=== PATIENT | male | born 1945 | race Caucasian/White ===

== ENCOUNTER 2019-04-26 13:54 | Outpatient (CLI) | payer MEDICARE, SELFPAY ==
[2019-04-27 11:01] LABS: Anion Gap 14.7 (5-19); Blood Urea Nitrogen 11 mg/dL (8-23); Carbon Dioxide 28 mmol/L (22-29); Chloride 94 mmol/L (98-107); Glucose 114 mg/dL (65-115); Osmolality Calculated 271 mOsm/kg (285-295); Potassium 4.7 mmol/L (3.5-5.1); Sodium 132 mmol/L (136-145)
[2019-04-29 08:52] LABS: Chol HDL Ratio 1.79 mg/dL (1.0-5.00); Cholesterol 200 mg/dL (0-200); HDL Cholesterol 112 mg/dL (60-100); LDL Cholesterol Calculated 81 mg/dL (50-129); LDL HDL Ratio 0.72 RATIO (0.00-3.22); Triglycerides 36 mg/dL (0-150)
== END 2019-04-26 13:55 | disposition home or self-care (01) ==
LOC: LAB 14:02
PROVIDERS: Family Provider Family Medicine; PCP Family Medicine; Visit Provider Counselor Professional
DX: E78.5 Hyperlipidemia, unspecified (principal); I25.10 Atherosclerotic heart disease of native coronary artery without angina pectoris; I25.84 Coronary atherosclerosis due to calcified coronary lesion; I10 Essential (primary) hypertension
CPT/HCPCS: 36415; 80048; 80061

== ENCOUNTER → 2019-12-24 10:41 | Outpatient (BNVA) | payer MEDICARE, SELFPAY | PROVIDERS: Family Provider Family Medicine; PCP Family Medicine; Visit Provider Family Medicine | DX: Z71.84 Encounter for health counseling related to travel (principal); F51.01 Primary insomnia; D70.8 Other neutropenia; Z00.00 Encounter for general adult medical examination without abnormal findings | CPT/HCPCS: 85025; 87635 ==

== ENCOUNTER → 2020-07-09 08:07 | Outpatient (BNVA) | payer MEDICARE, SELFPAY | PROVIDERS: Family Provider Family Medicine; PCP Family Medicine; Visit Provider Family Medicine Adult Medicine | DX: R30.0 Dysuria (principal); N39.0 Urinary tract infection, site not specified; R52 Pain, unspecified; I10 Essential (primary) hypertension | CPT/HCPCS: 81003; 87086 ==

== ENCOUNTER → 2020-08-10 10:52 | Outpatient (BNVA) | payer MEDICARE, SELFPAY | PROVIDERS: Family Provider Family Medicine; PCP Family Medicine; Visit Provider Registered Nurse Neonatal Intensive Care | DX: N39.0 Urinary tract infection, site not specified (principal) | CPT/HCPCS: 81000; 87077; 87086; 87184 ==

== ENCOUNTER → 2020-08-18 12:02 | Outpatient (BNVA) | payer MEDICARE, SELFPAY | PROVIDERS: Family Provider Family Medicine; PCP Family Medicine; Visit Provider Family Medicine | DX: N39.0 Urinary tract infection, site not specified (principal); R31.9 Hematuria, unspecified; N41.0 Acute prostatitis; N52.9 Male erectile dysfunction, unspecified; N40.0 Benign prostatic hyperplasia without lower urinary tract symptoms | CPT/HCPCS: 81000 ==

== ENCOUNTER → 2020-08-27 08:55 | Outpatient (BNVA) | payer MEDICARE, SELFPAY | PROVIDERS: Family Provider Family Medicine; PCP Family Medicine; Referring Provider Family Medicine Adult Medicine; Visit Provider Urology | DX: N39.0 Urinary tract infection, site not specified (principal); R31.9 Hematuria, unspecified; N40.0 Benign prostatic hyperplasia without lower urinary tract symptoms; N13.8 Other obstructive and reflux uropathy; N40.1 Benign prostatic hyperplasia with lower urinary tract symptoms | CPT/HCPCS: 81003 ==

== ENCOUNTER → 2021-06-07 10:51 | Outpatient (BNVA) | payer MEDICARE, SELFPAY | PROVIDERS: Family Provider Family Medicine; PCP Family Medicine; Visit Provider Family Medicine | DX: I10 Essential (primary) hypertension (principal); D72.819 Decreased white blood cell count, unspecified; I48.91 Unspecified atrial fibrillation; E78.00 Pure hypercholesterolemia, unspecified; I48.0 Paroxysmal atrial fibrillation | CPT/HCPCS: 80053; 80061; 84439; 84443; 85025 ==

== ENCOUNTER 2021-12-31 09:00 | Outpatient (CLI) | payer MEDICARE, SELFPAY ==
[2021-12-31 09:51] LABS: Chol HDL Ratio 1.76 mg/dL (1.0-5.00); Cholesterol 176 mg/dL (0-200); HDL Cholesterol 100 mg/dL (60-100); LDL Cholesterol Calculated 69 mg/dL (50-129); LDL HDL Ratio 0.69 RATIO (0.00-3.22); Triglycerides 33 mg/dL (0-150)
== END 2021-12-31 09:01 | disposition home or self-care (01) ==
PROVIDERS: PCP Family Medicine; Visit Provider Counselor Professional
DX: E78.00 Pure hypercholesterolemia, unspecified (principal); I10 Essential (primary) hypertension
CPT/HCPCS: 80061

== ENCOUNTER 2022-07-12 16:07 | Emergency (ER) | payer MEDICARE, SELFPAY ==
[2022-07-12] VITALS (9 sets, daily range): BP systolic 112–120; BP diastolic 65–70; PULSE 53–58; RESP 16–21; TEMP 36.9; O2SAT 97–98; BMI 22.4
--- NOTE | 2022-07-12 16:44 | ECG_ITS ---
[facility] Test Date: 2022-07-12 Pat Name: Terry Zuluaga Department: Room: Gender: Male Warehouse Representative: : 1945 Requested By: Herman Pozo Order Number: [id number] Monique MD: Greg Arceo M.D. Measurements Intervals [place] Rate: 53 P: 30 W[place]: 208 QRS: -3 QRSD: 107 T: 156 QT: 404 QTc: 381 Interpretive Statements SINUS BRADYCARDIA POSSIBLE LEFT ATRIAL ENLARGEMENT [-0.1mV P-WAVE IN V1/V2] ST DEVIATION AND MODERATE T-WAVE ABNORMALITY, CONSIDER ANTEROLATERAL ISCHEMIA [-0.1+ mV T-WAVE IN V3-V6] No previous ECG available for comparison Electronically Signed On 07-13-2022 17:50:57 CDT by Greg Arceo M.D. [id number]
--- NOTE | 2022-07-12 18:10 | XRR_ITS ---
PROCEDURE INFORMATION: Exam: XR Chest Exam date and time: 07/12/2022 6:25 PM Age: 77 years old Clinical indication: Cough and fever; Prior surgery; Surgery date: 6+ months; Surgery type: Cabg; Additional info: Cough fever TECHNIQUE: Imaging protocol: Radiologic exam of the chest. Views: 1 view. COMPARISON: No relevant prior studies available. FINDINGS: Lungs: See Heart/Mediastinum finding. Pleural spaces: Bilateral apical pleural thickening. No pleural effusion. No pneumothorax. Heart/Mediastinum: Cardiac silhouette is moderately enlarged. Mediastinal contours are unremarkable. Calcified subcarinal lymph node. Vasculature: Stable vascular calcifications in the aorta. Bones/joints: Unremarkable for age. XR/XR chest 1V portable [id number] IMPRESSION: 1. No acute cardiopulmonary process. 2. Incidental/nonacute findings are listed in the report.
--- NOTE | 2022-07-12 18:33 | ED_ITS ---
HPI - General Adult General: Chief complaint: General Medical Stated complaint: abnormal EKG Time Seen by Provider: 07/12/22 18:09 History of Present Illness: 77-year-old male patient comes in today for concerns of night sweats and abnormal EKG. Patient was at urgent care and was referred to the ER due to abnormal EKG. Patient states that last week he had worked outside for several days and since then has had increased night sweats which he attributes to heat exhaustion. Patient reports this has been going on for 4 days. Patient denies any other signs or symptoms of illness or injury. Patient has a history of coronary artery disease with bypass. Patient denies any other medical problems. Associated symptoms: Deny chest pain, dyspnea, headache(s), nausea, rash or vomiting Review of Systems General: Reports: 10 or more systems reviewed and unremarkable except in HPI and below Const: Reports: night sweats Eyes: Denies: change in vision ENMT: Denies: throat pain Card: Denies: chest pain Resp: Denies: dyspnea GI: Denies: nausea, vomiting or diarrhea : Denies: difficulty urinating Musc: Denies: neck pain or back pain Skin/Breast: Denies: rash Neuro: Denies: headache(s) Psych: Denies: anxiety PFSH ED PFSH: Medical History ASHD (arteriosclerotic heart disease) Atrial fibrillation and flutter BPH w urinary obs/LUTS Erectile dysfunction GERD (gastroesophageal reflux disease) History of leukemia Hypercholesteremia Hypertension Leukopenia Primary insomnia Prostatitis Recurrent UTI UTI (urinary tract infection) Surgical History History of appendectomy History of coronary artery bypass graft x 3 History of eyelid surgery History of inguinal hernia repair Social History Smoking and tobacco status: former smoker Alcohol intake: never Substance/Drug Use: never Marital status: Single Current occupational status: retired Physical Exam Const: COMMON NORMALS: alert HENMT: COMMON NORMALS: normocephalic HEAD & SCALP: normocephalic Neck/C-Spine: COMMON NORMALS: full ROM Chest: COMMONS NORMALS: normal inspection of the chest Resp: COMMON NORMALS: normal respiratory effort and clear to auscultation bilaterally AUSCULTATION: clear to auscultation bilaterally Cardio: COMMON NORMALS: regular rate and regular rhythm RATE: regular rate RHYTHM: regular rhythm GI: COMMON NORMALS: Soft to palpation and non-tender PALPATION: Yes Soft to palpation : COMMON NORMALS: Yes no CVA tenderness BLADDER/KIDNEY EXAM: Yes no CVA tenderness Back/Pelvis: COMMON NORMALS: no CVA tenderness Extremity: COMMON NORMALS: no pedal edema Neuro: SENSORIUM/ORIENTATION: Yes alert Skin: COMMON NORMALS: turgor normal GENERAL SKIN EXAM: turgor normal Course Vital Signs: Vital signs: Vital Signs Temperature 98.4 F 07/12/22 17:13 Pulse Rate 53 L 07/12/22 19:35 Respiratory Rate 18 07/12/22 19:35 Blood Pressure 120/70 07/12/22 19:35 Pulse Oximetry 98 07/12/22 18:38 Oxygen Delivery Me thod Room Air 07/12/22 17:13 [facility] - General Adult Medical Decision Making 77-year-old male patient comes in today for complaints of night sweats and abnormal EKG. Patient was at urgent care and his EKG was abnormal and was recommended to come into the ER for further evaluation. Patient appears nontoxic. Lungs were clear to auscultation. No edema is noted in the extremities. No rash was noted. Vital signs were normal except for some mild bradycardia at 55. Differential diagnosis includes but not limited to pneumonia, UTI, coronary artery disease, dehydration. Patient sodium was 126. CRP was elevated at 54. Remainder of labs were unremarkable. Patient denied any shortness of breath or chest pain. With patient's night sweats and elevated CRP I was concerned for an infectious origin. I could not find any site of infection. Patient reported no tick bites. Liver enzymes were normal. I recommend recheck of blood markers in 1 week with primary care. Patient has chr onic hyponatremia but today's was a little bit lower at 126 I gave patient 500 mL of saline and recommended electrolyte solution especially when working in the yard. Patient reported understanding of care plan and need for follow-up or return to the ER for worsening symptoms. Lab Data 07/12/22 18:30 07/12/22 18:30 Radiology Impressions Chest X-Ray 07/12/22 18:10 IMPRESSION: 1. No acute cardiopulmonary process. 2. Incidental/nonacute findings are listed in the report. Laboratory Results WBC 4.3 10^3/uL (4.0-10.0) 07/12/22 18:30 RBC 4.05 10^6/uL (4.1-5.3) L 07/12/22 18:30 Hgb 12.2 g/dL (11.7-16.6) 07/12/22 18:30 Hct 35.2 % (42.0-52.0) L 07/12/22 18:30 MCV 86.9 fl (80-94) 07/12/22 18:30 MCH 30.1 pg (28.0-34.0) 07/12/22 18: MCHC 34.7 g/dL (30.0-36.0) 07/12/22 18:30 RDW 12.3 % (12.1-15.1) 07/12/22 18:30 Plt Count 236 10^3/cmm (130-400) 07/12/22 18:30 MPV 10.4 fL (7.4-10.4) 07/12/22 18:30 Neut % (Auto) 65.8 % 07/12/22 18:30 Lymph % (Auto) 15.7 % 07/12/22 18:30 Stokes % (Auto) 11.7 % 07/12/22 18:30 Eos % (Auto) 5.4 % 07/12/22 18:30 Baso % (Auto) 0.7 % 07/12/22 18:30 Neut # (Auto) 2.82 10^3/uL (1.8-7.7) 07/12/22 18:30 Lymph # (Auto) 0.7 10^3/uL (0.8-4.8) L 07/12/22 18:30 Stokes # (Auto) 0.5 10^3/uL (0.2-0.9) 07/12/22 18:30 Eos # (Auto) 0.2 10^3/uL (0.0-0.8) 07/12/22 18:30 Baso # (Auto) 0.0 10^3/uL (0.0-0.1) 07/12/22 18:30 Nucleated RBC % (auto) 0 % 07/12/22 18:30 Nucleated RBCs # 0.0 /100WBC 07/12/22 18:30 Sodium 126 mmol/L (136-145) L 07/12/22 18:30 Potassium 3.9 mmol/L (3.5-5.1) 07/12/22 18:30 Chloride 88 mmol/L (98-107) L 07/12/22 18:30 Carbon Dioxide 26 mmol/L (22-29) 07/12/22 18:30 Anion Gap 15.9 (5-19) 07/12/22 18:30 BUN 17 mg/dL (8-23) 07/12/22 18:30 Creatinine 0.8 mg/dL (0.7-1.2) 07/12/22 18:30 GFR Calculation Not Reportable 07/12/22 18: Glucose 107 mg/dL (65-115) 07/12/22 18:30 Calculated Osmolality 264 mOsm/kg (285-295) L 07/12/22 18:30 Lactic Acid 0.8 mmol/L (0.5-2.2) 07/12/22 18:30 Calcium 10.0 mg/dL (8.5-10.5) 07/12/22 18:30 Total Bilirubin 0.7 mg/dL (0.15-1.2) 07/12/22 18:30 AST 16 U/L (0-40) 07/12/22 18:30 ALT 19 U/L (0-41) 07/12/22 18:30 Alkaline Phosphatase 54 U/L (40-130) 07/12/22 18:30 Troponin T Baseline 12 ng/L (0-15) 07/12/22 18:30 C-Reactive Protein 54.0 mg/L (0.0-4.9) H 07/12/22 18:30 NT-Pro-B Natriuret Pep 257 pg/mL (0-450) 07/12/22 18:30 Total Protein 7.2 g/dL (6.6-8.7) 07/12/22 18:30 Albumin 4.0 g/dL (3.5-5.2) 07/12/22 18:30 Globulin 3.2 g/dL (1.3-4.6) 07/12/22 18: Lipase 54 U/L (13-60) 07/12/22 18:30 Urine Color Yellow (Yellow) 07/12/22 19:08 Urine Appearance Clear (CLEAR) 07/12/22 19:08 Urine pH 7 (5-7) 07/12/22 19:08 Ur Specific [place] 1.010 (1.005-1.030) 07/12/22 19:08 Urine Protein Neg (Negative) 07/12/22 19:08 Urine Glucose (UA) Norm (Normal) 07/12/22 19:08 Urine Ketones Negative (Negative) 07/12/22 19:08 Urine Blood 2+ (Negative) H 07/12/22 19:08 Urine Nitrate Negative (Negative) 07/12/22 19:08 Urine Bilirubin Neg (Negative) 07/12/22 19:08 Urine Urobilinogen Neg mg/dL (Negative) 07/12/22 19:08 Ur Leukocyte Esterase Negative (Negative) 07/12/22 19:08 Urine RBC 0-4 /hpf (0-2) H 07/12/22 19:08 Urine WBC None /hpf (0-5) 07/12/22 19:08 Ur Squamous Epith Cells None /hpf (0-5) 07/12/22 19:08 Amorphous Sediment 2+ /hpf 07/12/22 19:08 Urine Bacteria None /hpf (NONE) 07/12/22 19:08 EKG Data EKG 1: EKG interpretation date: 07/12/22 EKG interpretation time: 17:10 Interpretation: EKG shows a sinus bradycardia with a regular rate of 53 bpm. No prior exam was available for comparison. No ST elevation is noted no other ectopy is noted. Patient has some ST deviation with T wave abnormality. Computer generated interpretation: Chest X-Ray 07/12/22 18:10 IMPRESSION: 1. No acute cardiopulmonary process. 2. Incidental/nonacute findings are listed in the report. Discharge Plan Discharge Patient Disposition: Home Clinical Impression: Hyponatremia, CRP elevated CAD (coronary artery disease) Qualifiers: Coronary Disease-Associated Artery/Lesion type: bypass graft [place] vs. transp lanted heart: [place] heart Associated angina: without angina Qualified Code(s): I25.810 - Atherosclerosis of coronary artery bypass graft(s) without angina pectoris Condition: Stable Prescriptions: No Action lisinopril-hydrochlorothiazide 10-12.5 mg tablet 1 tab PO DAILY atorvastatin 40 mg tablet 40 mg PO DAILY carvedilol 6.25 mg tablet 6.25 mg PO BID Rx Instructions: must administer with a meal/food sildenafil [Viagra] 50 mg tablet 50 mg PO DAILY PRN (Reason: sexual activity) Qty: 20 1RF Rx Instructions: administer 30 minutes to 4 hours before activity diclofenac sodium 75 mg tablet,delayed release (DR/EC) 75 mg PO BID PRN (Reason: pain) Qty: 14 0RF tamsulosin 0.4 mg capsule See Rx Instructions .ROUTE .COMPLEX Qty: 180 3RF Dose Instruction: TAKE 2 CAPSULES BY MOUTH EVERY DAY Rx Instructions: TAKE 2 CAPSULES BY MOUTH EVERY DAY alprazolam [Xanax] 1 mg tablet 1 mg PO BID PRN (Reason: sleep) Qty: 45 4RF Discharge Orders: Discharge ED (Routine); Ordered 07/12/22 Ordered By: Isreal Miller Referrals: Eva Nuñez MD [Primary Care Provider] - Discharge Diet: Usual diet Discharge Activity: Increase activity as tolerated Patient Instructions: Heat Exhaustion (ED) Activity Restrictions/Additional Instructions: Home and rest. Drink plenty of fluids. Make sure to replace electrolytes when outside and sweating. Follow-up with primary care in 1 week for recheck on labs. Return to ED for new concerns such as increased shortness of breath, severe chest pain, fever greater than 100.4, or new concerns. Coding Level of Care Code ED Leather Cutter for Lavonne Enrique
[2022-07-12 19:15] LABS: Basophils % 0.7 %; Eosinophils # 0.2 10^3/uL (0.0-0.8); Eosinophils % 5.4 %; Hematocrit 35.2 % (42.0-52.0); Hemoglobin 12.2 g/dL (11.7-16.6); Lymphocytes # 0.7 10^3/uL (0.8-4.8); Lymphocytes % 15.7 %; Mean Corpuscular HGB Conc 34.7 g/dL (30.0-36.0); Mean Corpuscular Hemoglobin 30.1 pg (28.0-34.0); Mean Corpuscular Volume 86.9 fl (80-94); Mean Platelet Volume 10.4 fL (7.4-10.4); Monocytes # 0.5 10^3/uL (0.2-0.9); Monocytes % 11.7 %; Neutrophils # 2.82 10^3/uL (1.8-7.7); Neutrophils % 65.8 %; Nucleated Red Blood Cells % 0 %; Platelet Count 236 10^3/cmm (130-400); Red Blood Count 4.05 10^6/uL (4.1-5.3); Red Cell Distribution Width 12.3 % (12.1-15.1); White Blood Count 4.3 10^3/uL (4.0-10.0)
[2022-07-12 19:37] LABS: Troponin(5th) Baseline 12 ng/L (0-15)
[2022-07-12 19:44] LABS: Add Urine Microscopic? YES; Bilirubin Urine Neg (Negative); Blood Urine 2+ (Negative); Glucose Urine UA Norm (Normal); Ketones Urine Negative (Negative); Leukocyte Esterase Urine Negative (Negative); Nitrate Urine Negative (Negative); Protein Urine Neg (Negative); Urine Appearance Clear (CLEAR); Urine Color Yellow (Yellow); Urobilinogen Urine Neg (Negative); pH Urine 7 (5-7)
[2022-07-12 19:44] LABS: Alanine Aminotransferase 19 U/L (0-41); Alkaline Phosphatase 54 U/L (40-130); Anion Gap 15.9 (5-19); Aspartate Amino Transferase 16 U/L (0-40); Blood Urea Nitrogen 17 mg/dL (8-23); Carbon Dioxide 26 mmol/L (22-29); Chloride 88 mmol/L (98-107); Globulin 3.2 g/dL (1.3-4.6); Glucose 107 mg/dL (65-115); Lipase 54 U/L (13-60); NT Pro B Type Natriuretic Pept 257 pg/mL (0-450); Osmolality Calculated 264 mOsm/kg (285-295); Potassium 3.9 mmol/L (3.5-5.1); Sodium 126 mmol/L (136-145); Total Bilirubin 0.7 mg/dL (0.15-1.2); Total Protein 7.2 g/dL (6.6-8.7)
[2022-07-12 19:45] LABS: Lactic Sepsis W/Reflex 0.8 mmol/L (0.5-2.2)
[2022-07-12 19:54] LABS: Add Urine Culture? No; Amorphous Sediment Urine 2+ /hpf; RBC Urine 0-4 /hpf (0-2)
[2022-07-12 20:46] LABS: Creatine Phosphokinase 69 U/L (39-308)
== END 2022-07-12 20:46 | disposition home or self-care (01) ==
PROVIDERS: Emergency Provider Nurse Practitioner Family; PCP Family Medicine
DX: I25.810 Atherosclerosis of coronary artery bypass graft(s) without angina pectoris (principal); E87.1 Hypo-osmolality and hyponatremia; R79.82 Elevated C-reactive protein (CRP); I10 Essential (primary) hypertension; Z87.891 Personal history of nicotine dependence
CPT/HCPCS: 36415; 71045; 80053; 81001; 82550; 83605; 83690; 83880; 84484; 85025; 86140; 93005; 99285

== ENCOUNTER 2023-02-28 11:52 | Outpatient (CLI) | payer MEDICARE, SELFPAY ==
[2023-02-28 13:11] LABS: Anion Gap 14.1 (5-19); Blood Urea Nitrogen 18 mg/dL (8-23); Calcium 10.4 mg/dL (8.5-10.5); Carbon Dioxide 26 mmol/L (22-29); Chloride 93 mmol/L (98-107); Chol HDL Ratio 1.83 mg/dL (1.0-5.00); Cholesterol 154 mg/dL (0-200); Glucose 116 mg/dL (65-115); HDL Cholesterol 84 mg/dL (60-100); LDL Cholesterol Calculated 61 mg/dL (50-129); LDL HDL Ratio 0.73 RATIO (0.00-3.22); Osmolality Calculated 269 mOsm/kg (285-295); Potassium 5.1 mmol/L (3.5-5.1); Sodium 128 mmol/L (136-145); Triglycerides 45 mg/dL (0-150)
== END 2023-02-28 11:53 | disposition home or self-care (01) ==
LOC: LAB 11:53
PROVIDERS: PCP Family Medicine; Visit Provider Counselor Professional
DX: Z01.89 Encounter for other specified special examinations (principal)
CPT/HCPCS: 80048; 80061

== ENCOUNTER 2023-11-01 18:18 | Emergency (ER) | payer MEDICARE, SELFPAY ==
[2023-11-01 18:34] VITALS: BP 156/76; PULSE 65; RESP 15; TEMP 36.6; O2SAT 96; BMI 22.4
--- NOTE | 2023-11-01 20:15 | ED_ITS ---
HPI - Skin/Abscess/Foreign Bdy General: Chief complaint: Skin/Abscess/Foreign Body Stated complaint: yellow jacket attack Time Seen by Provider: 11/01/23 19:59 Source: patient Mode of arrival: ambulatory Limitations: no limitations History of Present Illness: 78-year-old male states roughly 2 hours ago he was using loppers to chop down a small tree and had a wasp nest he was over and was stung multiple times by yellow jackets. He was stung mainly on the left arm states he has pain at the sites and some slight swelling and had some nausea he denies any shortness of breath denies any throat swelling denies any rash besides the localized stings Associated symptoms: Reports nausea; Deny chills, fever(s) or vomiting Related Data Home Medications Medication Instructions Recorded Confirmed atorvastatin 40 mg tablet 40 mg PO DAILY 12/24/19 09/07/23 carvedilol 6.25 mg tablet 6.25 mg PO BID 12/24/19 09/07/23 lisinopril 10 1 tab PO DAILY 12/24/19 09/07/23 mg-hydrochlorothiazide 12.5 mg tablet Previous Rx's Medication Instructions Recorded sildenafil 50 mg tablet See Rx Instructions .Route 09/05/22 .COMPLEX #20 tabs tamsulosin 0.4 mg capsule See Rx Instructions .Route 02/28/23 .COMPLEX #180 caps mupirocin 2 % topical ointment 1 applic topical TID #15 grams 06/28/23 diclofenac sodium 75 mg 75 mg PO BID PRN pain #60 tabs 07/17/23 tablet,delayed release alprazolam 1 mg tablet (Xanax) 1 mg PO BID PRN sleep #45 tabs 08/09/23 ondansetron 4 mg disintegrating 4 mg PO Q6H PRN nausea and 11/01/23 tablet vomiting #14 tabs Allergies Allergy/AdvReac Type Severity Reaction Status Date / Time morphine Allergy ADR-Gastrointestinal Verified 11/01/23 18:40 Upset Review of Systems Const: Denies: fever(s), chills, body aches or change in appetite ENMT: Denies: throat pain or dental pain Card: Denies: chest pain Resp: Denies: dyspnea GI: Reports: nausea; Denies: abdominal pain, vomiting or diarrhea Musc: Reports: extremity pain; Denies: neck pain or back pain Skin/Breast: Denies: rash Neuro: Denies: headache(s) PFSH ED PFSH: Medical History 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 Atrial fibrillation and flutter Erectile dysfunction Hypercholesteremia BPH w urinary obs/LUTS Recurrent UTI Prostatitis UTI (urinary tract infection) Hypertension History of leukemia GERD (gastroesophageal reflux disease) ASHD (arteriosclerotic heart disease) Leukopenia Primary insomnia Surgical History History of eyelid surgery History of coronary artery bypass graft x 3 History of inguinal hernia repair History of appendectomy Social History Smoking and tobacco/nicotine status: never used tobacco/nicotine Alcohol intake: never Substance/Drug Use: never Marital status: Single Current occupational status: retired Physical Exam Const: COMMON NORMALS: no acute distress, patient oriented x3 and healthy appearing HENMT: COMMON NORMALS: normocephalic and atraumatic HEAD & SCALP: normocephalic and atraumatic OTHER: no throat swelling Neck/C-Spine: COMMON NORMALS: full ROM and supple Chest: COMMONS NORMALS: normal inspection of the chest Resp: COMMON NORMALS: normal respiratory effort and clear to auscultation bilaterally EFFORT & INSPECTION: Yes able to speak in complete sentences AUSCULTATION: clear to auscultation bilaterally Cardio: COMMON NORMALS: regular rate, regular rhythm and No murmurs present (Cardio) RATE: regular rate RHYTHM: regular rhythm Extremity: NARRATIVE EXTREMITY EXAM: Multiple wall stains to left arm noted Neuro: COMMON NORMALS: patient oriented x3, moves all extremities and no focal motor deficits Psych: COMMON NORMALS: mental status grossly normal, Normal thought process present and cooperative THOUGHT PROCESS: Normal thought process present Skin: COMMON NORMALS: no rashes or lesions noted and no wounds GENERAL SKIN EXAM: no rashes or lesions noted Course Vital Signs: Vital signs: Vital Signs Temperature 97.8 F 11/01/23 18:34 Pulse Rate 67 11/01/23 20:16 Respiratory Rate 14 11/01/23 20:16 Blood Pressure 167/74 11/01/23 20:16 Pulse Oximetry 97 11/01/23 20:16 Oxygen Delivery Me thod Room Air 11/01/23 18:34 MDM - Skin/Abscess/Foreign Bdy Medicial Decision Making Patient presents for his stating he is well-appearing here no signs anaphylaxis he stable for discharge follow-up with PCP return if worsening. Medical Records I reviewed the patient's medical records. No radiology studies performed this visit Discharge Plan Discharge Patient Disposition: Home Clinical Impression: Wasp sting Condition: Stable Prescriptions: New ondansetron 4 mg tablet,disintegrating 4 mg PO Q6H PRN (Reason: nausea and vomiting) Qty: 14 0RF No Action lisinopril-hydrochlorothiazide 10-12.5 mg tablet 1 tab PO DAILY atorvastatin 40 mg tablet 40 mg PO DAILY carvedilol 6.25 mg tablet 6.25 mg PO BID Rx Instructions: must administer with a meal/food mupirocin 2 % ointment 1 applic topical TID Qty: 15 0RF sildenafil 50 mg tablet See Rx Instructions .ROUTE .COMPLEX Qty: 20 1RF Dose Instruction: TAKE 1 TABLET BY MOUTH 30 minutes TO FOUR hours before sexual activity NEEDED Rx Instructions: TAKE 1 TABLET BY MOUTH 30 minutes TO FOUR hours before sexual activity NEEDED tamsulosin 0.4 mg capsule See Rx Instructions .ROUTE .COMPLEX Qty: 180 3RF Dose Instruction: TAKE 2 CAPSULES BY MOUTH EVERY DAY Rx Instructions: TAKE 2 CAPSULES BY MOUTH EVERY DAY diclofenac sodium 75 mg tablet,delayed release (DR/EC) 75 mg PO BID PRN (Reason: pain) Qty: 60 2RF alprazolam [Xanax] 1 mg tablet 1 mg PO BID PRN (Reason: sleep) Qty: 45 4RF Discharge Orders: Discharge ED (Routine); Ordered 11/01/23 Ordered By: Dov Chaudhary Referrals: Eva Nuñez MD [Primary Care Provider] - 1-3 days Discharge Diet: Advance as tolerated Discharge Activity: Resume usual activity Patient Instructions: Insect Bite or Sting (ED) Coding Level of Care Code ED Medical Bill Processor for Lavonne Enrique
[2023-11-01 20:16] VITALS: BP 167/74; PULSE 67; RESP 14; O2SAT 97
[2023-11-01] MEDS: diphenhydrAMINE 50 mg Capsule PO (20:25)
[2023-11-01] MEDS: ondansetron 4 MG Tablet PO (20:25)
[2023-11-01] MEDS: HYDROcodone-acetaminophen 5-325 mg Tablet 1 TAB PO (20:25)
[2023-11-01 20:31] VITALS: BP 167/74; PULSE 63; RESP 14; O2SAT 98
== END 2023-11-01 20:31 | disposition home or self-care (01) ==
PROVIDERS: Emergency Provider Emergency Medicine; PCP Family Medicine
DX: T63.461A Toxic effect of venom of wasps, accidental (unintentional), initial encounter (principal); I10 Essential (primary) hypertension; Z85.6 Personal history of leukemia; Z95.1 Presence of aortocoronary bypass graft
CPT/HCPCS: 99283; Q0162; Q0163

== ENCOUNTER → 2023-12-13 08:00 | Outpatient (BNVA) | payer MEDICARE, SELFPAY | PROVIDERS: PCP Family Medicine; Referring Provider Family Medicine; Visit Provider Surgery | DX: K40.90 Unilateral inguinal hernia, without obstruction or gangrene, not specified as recurrent (principal) | CPT/HCPCS: 99204 ==

== ENCOUNTER → 2023-12-25 05:46 | Day surgery (SDC) | payer MEDICARE, SELFPAY ==
--- NOTE | 2023-12-25 05:45 | P.HPUD_ITS ---
Surgery/Procedure H&P Update DATE OF PROCEDURE: December 25, 2023 DATE H&P PERFORMED: 12/13/23 H&P UPDATE INFORMATION: I have reviewed H&P completed within last 30 days, I have examined patient prior to procedure, No changes to prior documentation and H&P is in [facility] EMR on date indicated PLANNED PROCEDURE: Operation Date: 12/25/23 07:00 Proposed Procedures p Open Inguinal Hernia Repair w/ Mesh [id number], K40.90(Right) - Terry Rodriguez MD
--- NOTE | 2023-12-25 06:03 | P.ANESASSM_ITS ---
Pre-Anesthetic Assessment Height/Weight: Height 6 ft 2 in Preop Diagnosis: Hernia Operation Date: 12/25/23 07:00 Proposed Procedures p Open Inguinal Hernia Repair w/ Mesh [id number], K40.90(Right) - Terry Rodriguez MD Was Beta Robert taken within 24 hours: N/A Was Clonidine taken within 24 hours: N/A Social No alcohol and No tobacco Quit smoking in 2009 Exam alert, oriented x 3, clear to auscultation bilaterally and regular rate & rhythm Airway Submandibular: within normal limits Cervical ROM: within normal limits Mallampati: Class III Dentition: full and other (Mostly all implants, nothing comes out. Denies any loose teeth) Anesthetic Plan ASA status: 3 Anesthesia: General Other: No prior issues with anesthesia NPO since yesterday evening History of hypertension on lisinopril?HCTZ, carvedilol. History of atrial flutter, ablation 2 years ago. Will obtain EKG BMP pending Patient remains active, METs greater than 4 Plan for GETA Medications/Allergies Home Medications Medication Instructions Recorded Confirmed Last Taken Type atorvastatin 40 mg tablet 40 mg PO DAILY 12/24/19 12/21/23 12/20/23 21:00 History carvedilol 6.25 mg tablet 6.25 mg PO BID 12/24/19 12/21/23 12/20/23 21:00 History lisinopril 10 1 tab PO DAILY 12/24/19 12/21/23 12/21/23 History mg-hydrochlorothiazide 12.5 mg tablet mupirocin 2 % topical ointment 1 applic topical TID #15 grams 06/28/23 12/21/23 Unknown Rx diclofenac sodium 75 mg 75 mg PO BID PRN pain #60 tabs 07/17/23 12/21/23 Unknown Rx tablet,delayed release alprazolam 1 mg tablet (Xanax) 1 mg PO BID PRN sleep #45 tabs 08/09/23 12/21/23 12/20/23 21:00 Rx sildenafil 50 mg tablet (Viagra) See Rx Instructions .Route .COMPLEX 12/21/23 12/21/23 Unknown History tamsulosin 0.4 mg capsule (Flomax) 0.8 mg PO DAILY 12/21/23 12/21/23 History Allergies Allergy/AdvReac Type Severity Reaction Status Date / Time morphine Allergy ADR-Gastrointestinal Verified 12/21/23 11:53 Upset [facility] Anesthesia Medical History 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 Atrial fibrillation and flutter Erectile dysfunction Hypercholesteremia BPH w urinary obs/LUTS Recurrent UTI Prostatitis UTI (urinary tract infection) Hypertension History of leukemia GERD (gastroesophageal reflux disease) ASHD (arteriosclerotic heart disease) Leukopenia Primary insomnia Surgical History (Updated 12/13/23 @ 08:25 by Terry Rodriguez MD) History of coronary artery bypass graft x 3 History of inguinal hernia repair History of appendectomy Social History (Updated 12/13/23 @ 08:18 by LEON Bowen) Smoking and tobacco/nicotine status: former use of tobacco/nicotine Alcohol intake: current Alcohol intake frequency: holidays/special occasions only Substance/Drug Use: never Marital status: Single Current occupational status: retired Data Anesthesia 12/25/23 06:15 Cardiac Studies: 2 No Data to Display
[2023-12-25 06:11] VITALS: BP 119/77; PULSE 54; RESP 18; TEMP 36.4; O2SAT 98
[2023-12-25 06:14] VITALS: BMI 21.7
[2023-12-25] MEDS: sodium chloride 0.9% 1,000 ML 30 ML IV (06:28)
--- NOTE | 2023-12-25 06:45 | ECG_ITS ---
[facility]: [facility]23[facility]25 Pat Name: Terry Zuluaga Department: Room: Gender: Male Emergency Room Clerk: : 1945 Requested By: Esmer Mendez Order Number: [id number] Monique MD: Lulu Ovalle M.D. Measurements Intervals [place] Rate: 51 P: 40 [place]: 255 QRS: 50 QRSD: 118 T: 101 QT: 409 QTc: 377 Interpretive Statements SINUS BRADYCARDIA WITH FIRST DEGREE AV BLOCK MODERATE INTRAVENTRICULAR CONDUCTION DELAY [110+ ms QRS DURATION] MODERATE T-WAVE ABNORMALITY, CONSIDER ANTERIOR ISCHEMIA [-0.1+ mV T-WAVE IN V3/V4] Compared to ECG 07/12/2022 16:44:47 First degree AV block now present Intraventricular conduction delay now present T-wave abnormality still present Possible ischemia still present Electronically Signed On 12-26-2023 00:51:30 CDT by Lulu Ovalle M.D. [id number]
[2023-12-25 06:55] LABS: Blood Urea Nitrogen 11 mg/dL (8-23); Calcium 9.4 mg/dL (8.5-10.5); Carbon Dioxide 24 mmol/L (22-29); Chloride 91 mmol/L (98-107); Creatinine Clr Calc Pharmacy 87.4812; Glucose 107 mg/dL (65-115); Osmolality Calculated 256 mOsm/kg (285-295); Sodium 123 mmol/L (136-145)
[2023-12-25 06:57] LABS: Anion Gap 12.6 (5-19); Potassium 4.6 mmol/L (3.5-5.1)
--- NOTE | 2023-12-25 07:12 | PC.NURSE ---
Procedured cancelled per anesthesia due to low sodium level of 123
== END ==
PROVIDERS: Anesthesiology; PCP Family Medicine; Visit Provider Surgery
DX: K40.90 Unilateral inguinal hernia, without obstruction or gangrene, not specified as recurrent (principal); Z53.8 Procedure and treatment not carried out for other reasons
CPT/HCPCS: 36415; 80048; 93005; J2704; J3010; J7030

== ENCOUNTER → 2024-01-04 14:41 | Outpatient (BNVA) | payer MEDICARE, SELFPAY | PROVIDERS: PCP Family Medicine; Visit Provider Family Medicine | DX: K40.90 Unilateral inguinal hernia, without obstruction or gangrene, not specified as recurrent (principal) | CPT/HCPCS: 80048 ==

== ENCOUNTER 2024-01-22 08:11 | Day surgery (SDC) | payer MEDICARE, SELFPAY ==
[2024-01-22] VITALS (12 sets, daily range): BP systolic 129–165; BP diastolic 63–83; PULSE 50–62; RESP 15–20; TEMP 36.4–36.7; O2SAT 98–100; BMI 21.7
--- NOTE | 2024-01-22 08:29 | W.PM.OPSFHP ---
Same Day Surgery H&P Indication for Procedure/HPI DATE OF PROCEDURE: January 22, 2024 CHIEF COMPLAINT/INDICATIONFOR SURGICAL PROCEDURE: Right inguinal hernia PREOP DIAGNOSIS: right inguinal hernia PLANNED PROCEDURE: Operation Date: 01/22/24 11:55 Proposed Procedures p Open Inguinal Hernia Repair w/ Mesh(Right) - Terry Rodriguez MD Medications/Allergies* Home Medications Medication Instructions Recorded Confirmed Type atorvastatin 40 mg tablet 40 mg PO DAILY 12/24/19 01/08/24 History carvedilol 6.25 mg tablet 6.25 mg PO BID 12/24/19 01/08/24 History sildenafil 50 mg tablet (Viagra) See Rx Instructions .Route .COMPLEX 12/21/23 01/08/24 History tamsulosin 0.4 mg capsule (Flomax) 0.8 mg PO DAILY 12/21/23 01/08/24 History Allergies/Adverse Reactions Allergy/AdvReac Type Severity Reaction Status Date / Time morphine Allergy ADR-Gastrointestinal Verified 01/08/24 09:36 Upset Pertinent History/Comorbid Conditions* Medical History (Updated 11/27/23 @ 16:17 by Eva Nuñez MD) 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 Atrial fibrillation and flutter Erectile dysfunction Hypercholesteremia BPH w urinary obs/LUTS Recurrent UTI Prostatitis UTI (urinary tract infection) Hypertension History of leukemia GERD (gastroesophageal reflux disease) ASHD (arteriosclerotic heart disease) Leukopenia Primary insomnia Surgical History (Updated 12/13/23 @ 08:25 by Terry Rodriguez MD) History of coronary artery bypass graft x 3 History of inguinal hernia repair History of appendectomy Social History Smoking and tobacco/nicotine status: never used tobacco/nicotine Alcohol intake: current Alcohol intake frequency: holidays/special occasions only Substance/Drug Use: never Marital status: Single Current occupational status: retired Pertinent Exam Findings alert, oriented x 3, clear to auscultation bilaterally and regular rate & rhythm Recommendations Surgery/Procedure today Coding Level of Care Code Acute Code for Chg Fwd
[2024-01-22] MEDS: sodium chloride 0.9% 1,000 ML 30 ML IV (09:07)
[2024-01-22 09:37] LABS: Anion Gap 12.3 (5-19); Blood Urea Nitrogen 10 mg/dL (8-23); Calcium 10.2 mg/dL (8.5-10.5); Carbon Dioxide 26 mmol/L (22-29); Chloride 94 mmol/L (98-107); Creatinine Clr Calc Pharmacy 87.4812; Glucose 98 mg/dL (65-115); Osmolality Calculated 265 mOsm/kg (285-295); Potassium 4.3 mmol/L (3.5-5.1); Sodium 128 mmol/L (136-145)
--- NOTE | 2024-01-22 10:15 | P.ANESASSM_ITS ---
Pre-Anesthetic Assessment Height/Weight: Height 1.88 m Weight 76.657 kg Temp Pulse Resp BP Pulse Ox O2 Del Method 97.8 F 59 L 16 165/78 98 Room Air 01/22/24 08:40 01/22/24 08:40 01/22/24 08:40 01/22/24 08:40 01/22/24 08:40 01/22/24 08:50 Preop Diagnosis: right inguinal hernia Operation Date: 01/22/24 11:55 Proposed Procedures p Open Inguinal Hernia Repair w/ Mesh(Right) - Terry Rodriguez MD Familial anesthetic complications: None Last intake: Intake Last Liquid Date 01/22/24 Last Liquid Time 20:00 Last Solid Date 01/21/24 Last Solid Time 21:00 Social No alcohol and No tobacco Exam alert, oriented x 3, clear to auscultation bilaterally and regular rate & rhythm Airway Mallampati: Class II Dentition: full CV/HEM Hypertension hx a flutter Metabolic Hyperlipidemia Anesthetic Plan ASA status: 3 Anesthesia: General Risk of > 500 ml blood loss (7ml/kg in children): No Other Pertinent Information Discussed with patient he is at his baseline sodium levels today, shared contents of Dr. Nuñez's note including goal of sodium level of 128 or higher for surgery. Did offer that patient may also elect to try to further increase sodium levels if he so desired, but after discussion with patient elected to proceed today. Medications/Allergies Home Medications Medication Instructions Recorded Confirmed Last Taken Type atorvastatin 40 mg tablet 40 mg PO DAILY 12/24/19 01/22/24 01/21/24 History carvedilol 6.25 mg tablet 6.25 mg PO BID 12/24/19 01/22/24 01/21/24 History diclofenac sodium 75 mg 75 mg PO BID PRN pain #60 tabs 07/17/23 01/22/24 01/21/24 Rx tablet,delayed release alprazolam 1 mg tablet (Xanax) 1 mg PO BID PRN sleep #45 tabs 08/09/23 01/22/24 01/21/24 Rx sildenafil 50 mg tablet (Viagra) See Rx Instructions .Route .COMPLEX 12/21/23 01/22/24 Unknown History tamsulosin 0.4 mg capsule (Flomax) 0.8 mg PO DAILY 12/21/23 01/22/24 01/21/24 History ofloxacin 0.3 % ear drops 0.3 drp otic (ear) DIRECTED 01/22/24 01/22/24 01/21/24 History ofloxacin 0.3 % ear drops drp 01/22/24 Unknown History Allergies Allergy/AdvReac Type Severity Reaction Status Date / Time morphine Allergy ADR-Gastrointestinal Verified 01/08/24 09:36 Upset Current Medications Generic Name Dose Route Start Last Admin Trade Name Anita PRN Reason Stop Dose Admin Sodium Chloride 1,000 mls @ 30 mls/hr 01/22/24 08:15 01/22/24 09:07 Sodium Chloride 0.9% IV 01/23/24 08:14 30 mls/hr .Q24H JAK Administration PFSH Anesthesia Medical History 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 Atrial fibrillation and flutter Erectile dysfunction Hypercholesteremia BPH w urinary obs/LUTS Recurrent UTI Prostatitis UTI (urinary tract infection) Hypertension History of leukemia GERD (gastroesophageal reflux disease) ASHD (arteriosclerotic heart disease) Leukopenia Primary insomnia Surgical History (Updated 12/13/23 @ 08:25 by Terry Rdoriguez MD) History of coronary artery bypass graft x 3 History of inguinal hernia repair History of appendectomy Social History (Updated 12/13/23 @ 08:18 by LEON Bowen) Smoking and tobacco/nicotine status: never used tobacco/nicotine Alcohol intake: current Alcohol intake frequency: holidays/special occasions only Substance/Drug Use: never Marital status: Single Current occupational status: retired Data Anesthesia 01/22/24 09:00 BMP 01/22/24 09:00 Sodium 128 L Potassium 4.3 Chloride 94 L Carbon Dioxide 26 BUN 10 Creatinine 0.6 L Glucose 98 Calcium 10.2 Cardiac Studies: 2 No Data to Display
[2024-01-22] MEDS: ceFAZolin 2,000 mg SDV 2000 MG IVP (12:05)
[2024-01-22] MEDS: BUPivacaine 0.25% INJ 30 mL INJECTION (13:46)
[2024-01-22] MEDS: lidocaine-epi 1% PF 1:200,000 30 mL SDV INJECTION (13:49)
--- NOTE | 2024-01-22 14:08 | PM.OP ---
Operative Report Date of procedure: January 22, 2024 Pre-op diagnosis: Right inguinal hernia Post-op diagnosis: Indirect right inguinal hernia Post-op findings: There was a large indirect sac on the right inguinal region, the floor of the canal was severely attenuated but no overt direct hernia noted. There was a small lipoma of the cord Procedure done: Open right inguinal hernia repair with mesh Implants: Bard polypropylene mesh Specimens removed/disposition: Lipoma of the cord Surgeon: Terry Rodriguez MD Paintless Dent Repair Technician: SHAMIKA OR Staff Estimated blood loss: 10 Complications: none apparent Brief History: 78-year-old male who presents to my office for evaluation of right inguinal hernia, after discussion of all risk and benefits as documented in my preop note we decided to proceed with an open right inguinal hernia repair with mesh. Procedure: Patient was brought into the OR, he was placed in the supine position. General anesthesia was given. The abdomen was prepped and draped in usual sterile fashion. Timeout was conducted. I proceeded to josemanuel the anatomic landmarks of the right groin, the hernia which was previously incarcerated with use spontaneously after induction of anesthesia. I made a 6 cm incision of the right groin, the incision was deepened until the aponeurosis of the external oblique was identified. The aponeurosis of the external oblique was opened in direction of the fibers with a blade, then I used a Metzenbaum scissor to open the neurosis from the level of the external ring to the area overlying the internal ring. With careful blunt dissection I then proceeded to separate the cord and cord structures from the inguinal canal, I then used a [place] drain to encircle the cord and cord structures. The posterior wall of the canal appeared to be weakened but no overt direct hernia. I then proceeded to open the cremaster muscle in a longitudinal fashion. I then proceeded to bluntly dissect the hernia sac from the cord structures. Area of the internal ring. A small lipoma of the cord was also identified. The lipoma of the cord was ligated with #2 Vicryl and excised. The hernia sac was twisted and ligated then it was returned to the properitoneal space. I then proceeded to place precut mesh in the floor of the canal with the tails around the cord structures. The mesh was fixed in the medial direction to the pubic tubercle with 0 Prolene, and inferior direction of the shelving edge of the inguinal ligament with #2-0 Prolene in the superior direction of the conjoined tendon with #2-0 Vicryl. The tails of the mesh were then fixed together with Prolene to recreate the internal ring. Mesh was flat, no evidence of bleeding hemostasis was verified. During the procedure the ilioinguinal and genital branch of the genitofemoral nerve were identified and preserved, iliohypogastric nerve was not visualized. The aponeurosis of the external oblique was then closed using #2-0 Vicryl. The wound was then closed in layers using #3-0 Vicryl for the Shira's fascia and subcutaneous tissue #4 Monocryl for the skin. Local anesthesia was infiltrated in the tissue. Dermabond was applied. The end of the procedure all counts were correct, the patient tolerated well the procedure and was transferred to PACU in stable condition.
--- NOTE | 2024-01-22 16:30 | ANE.PACU2 ---
Inpatient post-anesthesia follow up: Airway intact: Yes Vital signs: Temperature 98.0 F Pulse Rate 62 Respiratory Rate 16 Blood Pressure 148/83 Pulse Oximetry 98 Oxygen Delivery Me thod Room Air Oxygen Flow Rate 6 Fraction of Inspir ed Oxygen Hydration adequate: Yes Nausea and vomiting: No Pain level: 1 Mental status: Baseline
== END 2024-01-22 16:30 | disposition home or self-care (01) ==
PROVIDERS: Anesthesiology; PCP Family Medicine; Visit Provider Surgery
PROC: (CPT 49505; principal; 2024-01-22 11:45)
DX: K40.90 Unilateral inguinal hernia, without obstruction or gangrene, not specified as recurrent (principal); D17.6 Benign lipomatous neoplasm of spermatic cord; E78.00 Pure hypercholesterolemia, unspecified; N40.1 Benign prostatic hyperplasia with lower urinary tract symptoms; N13.8 Other obstructive and reflux uropathy; K21.9 Gastro-esophageal reflux disease without esophagitis; Z95.1 Presence of aortocoronary bypass graft; I10 Essential (primary) hypertension; E78.5 Hyperlipidemia, unspecified
CPT/HCPCS: 49505; 36415; 80048; 88304; J0131; J0690; J1100; J2405; J2704; J2710; J3010; J3490; J7030

== ENCOUNTER 2024-02-05 15:37 | Outpatient (CLI) | payer MEDICARE, SELFPAY ==
--- NOTE | 2024-02-05 15:46 | XR_ITS ---
WS: [id number] Exam: XR abdomen 1V* [id number] Date/Time of Exam: 02/05/2024 3:46 PM Reason For Exam: postoperative illeus No bowel obstruction or free air. No sign of organ enlargement. Extensive aortoiliac atherosclerosis. Angular levoscoliosis of the lumbar spine. Marked DJD of the RIGHT hip. XR/XR abdomen 1V* [id number] IMPRESSION: 1. No acute abdominal process.
== END 2024-02-05 15:38 | disposition home or self-care (01) ==
LOC: RAD 15:38
PROVIDERS: PCP Family Medicine; Visit Provider Family Medicine
DX: T81.89XA Other complications of procedures, not elsewhere classified, initial encounter (principal); K56.0 Paralytic ileus; X58.XXXA Exposure to other specified factors, initial encounter
CPT/HCPCS: 74018

== ENCOUNTER 2024-02-07 09:17 | Emergency (ER) | payer MEDICARE, SELFPAY ==
[2024-02-07 09:26] VITALS: BP 167/89; PULSE 66; RESP 18; TEMP 36.7; O2SAT 99; BMI 23.5
--- NOTE | 2024-02-07 09:31 | W.ED.MALEGU ---
HPI - Male Genitourinary General: Chief complaint: Urogenital-Male Stated complaint: bladder tention Time Seen by Provider: 02/07/24 09:24 History of Present Illness: 78-year-old male presents to the emergency room at the direction of his primary surgeon. He recently had a hernia repair presented to the doctor's office with abdominal distention consistent with urinary retention. Patient reports she has not been able to urinate regularly for some time. His original surgery was on January 21. He is having a little bit of incontinence at night and states he cannot void when standing straight. Dr. Rodriguez seen him earlier today in the office was suspicious that he had urinary retention and directed him to the emergency room. Associated symptoms: Deny dysuria Related Data Home Medications Medication Instructions Recorded Confirmed atorvastatin 40 mg tablet 40 mg PO QPM 12/24/19 02/07/24 sildenafil 50 mg tablet (Viagra) See Rx Instructions .Route 12/21/23 02/07/24 .COMPLEX PRN Erectile Dysfunction tamsulosin 0.4 mg capsule (Flomax) 0.8 mg PO QAM 12/21/23 02/07/24 ofloxacin 0.3 % ear drops 5 drp otic (ear) BID PRN fungal 01/22/24 02/07/24 itching carvedilol 3.125 mg tablet 3.125 mg PO BID 02/07/24 02/07/24 clotrimazole 1 % topical solution See Rx Instructions .Route .COMPLEX 02/07/24 02/07/24 lisinopril 10 mg tablet 10 mg PO QAM 02/07/24 02/07/24 minoxidil 2.5 mg tablet 2.5 mg PO QAM 02/07/24 02/07/24 [id number] 3.5 4 drp otic (ear) Q8H PRN fungal 02/07/24 02/07/24 mg-10,000 unit/mL-1 % ear itching drops,susp nitroglycerin 0.4 mg sublingual See Rx Instructions .Route 02/07/24 02/07/24 tablet .COMPLEX PRN Chest Pain Previous Rx's Medication Instructions Recorded alprazolam 1 mg tablet (Xanax) 1 mg PO BID PRN sleep #45 tabs 01/24/24 Allergies Allergy/AdvReac Type Severity Reaction Status Date / Time morphine Allergy ADR-Gastrointestinal Verified 02/11/24 13:48 Upset Review of Systems Const: Denies: fever(s) or chills Card: Denies: chest pain Resp: Denies: dyspnea GI: Denies: abdominal pain : Reports: difficulty urinating, urinary dribbling, difficulty starting urination and oliguria; Denies: dysuria, urinary frequency or urinary urgency Musc: Denies: neck pain or back pain Skin/Breast: Denies: rash PFSH ED PFSH: Medical History 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 Atrial fibrillation and flutter Erectile dysfunction Hypercholesteremia BPH w urinary obs/LUTS Recurrent UTI Prostatitis UTI (urinary tract infection) Hypertension History of leukemia GERD (gastroesophageal reflux disease) ASHD (arteriosclerotic heart disease) Leukopenia Primary insomnia Surgical History History of coronary artery bypass graft x 3 History of inguinal hernia repair History of appendectomy Social History Smoking and tobacco/nicotine status: never used tobacco/nicotine Alcohol intake: current Alcohol intake frequency: holidays/special occasions only Substance/Drug Use: never Marital status: Single Current occupational status: retired Physical Exam Const: GENERAL APPEARANCE: cooperative ORIENTATION/CONSCIOUSNESS: Yes awake, Yes oriented to person, Yes oriented to place and Yes oriented to time HENMT: COMMON NORMALS: normocephalic, atraumatic and hearing grossly normal bilaterally HEAD & SCALP: normocephalic and atraumatic Resp: COMMON NORMALS: normal respiratory effort, No retractions, No use of accessory muscles and clear to auscultation bilaterally AUSCULTATION: clear to auscultation bilaterally Cardio: COMMON NORMALS: regular rate, regular rhythm and No murmurs present (Cardio) RATE: regular rate RHYTHM: regular rhythm GI: COMMON NORMALS: No hepatosplenomegaly present AUSCULTATION: Yes normoactive bowel sounds PALPATION: Yes Tenderness to palpation present (GI) (Abdominal distention consistent with urinary retention. ), No Guarding due to palpation present (GI) and Yes No hepatosplenomegaly present OTHER: Bladder bladder palpable above the level of the umbilicus Extremity: COMMON NORMALS: normal to inspection, capillary refill normal, no clubbing, cyanosis or edema, no calf tenderness and no pedal edema Neuro: SENSORIUM/ORIENTATION: Yes oriented to person, Yes oriented to place and Yes oriented to time Skin: COMMON NORMALS: no rashes or lesions noted GENERAL SKIN EXAM: no rashes or lesions noted Course Vital Signs: Vital signs: Vital Signs Temperature 98.1 F 02/07/24 09:26 Pulse Rate 73 02/07/24 12:56 Respiratory Rate 18 02/07/24 09:26 Blood Pressure 183/75 02/07/24 12:56 Pulse Oximetry 98 02/07/24 12:56 Oxygen Delivery Me thod Room Air 02/07/24 11:30 MDM - Male Medical Decision Making Acute urinary retention no evidence of a cystitis. Gómez placed patient had good relief of symptoms and. Will discharge patient home with Gómez leg bag and set up for follow-up with urology. Patient is currently on max dose of tamsulosin Lab Data 02/07/24 10:55 02/07/24 10:55 Laboratory Results WBC 4.78 10^3/uL (3.29-11.43) 02/07/24 10:55 RBC 3.49 10^6/uL (3.85-5.65) L 02/07/24 10:55 Hgb 10.40 g/dL (11.27-16.99) L 02/07/24 10:55 Hct 31.4 % (37-53) L 02/07/24 10:55 MCV 90.0 fl (82-101) 02/07/24 10:55 MCH 29.8 pg (27-33) 02/07/24 10:55 MCHC 33.1 g/dL (30-55) 02/07/24 10:55 RDW 13.1 % (12.1-15.1) 02/07/24 10:55 Plt Count 294 10^3/cmm (157-399) 02/07/24 10:55 MPV 9.5 fL (7.4-10.4) 02/07/24 10:55 Neut % (Auto) 70.5 % 02/07/24 10:55 Lymph % (Auto) 15.9 % 02/07/24 10:55 [place] % (Auto) 8.8 % 02/07/24 10:55 Eos % (Auto) 3.8 % 02/07/24 10:55 Baso % (Auto) 0.6 % 02/07/24 10:55 Neut # (Auto) 3.37 10^3/uL (1.8-7.7) 02/07/24 10:55 Lymph # (Auto) 0.8 10^3/uL (0.8-4.8) 02/07/24 10:55 [place] # (Auto) 0.4 10^3/uL (0.2-0.9) 02/07/24 10:55 Eos # (Auto) 0.2 10^3/uL (0.0-0.8) 02/07/24 10:55 Baso # (Auto) 0.0 10^3/uL (0.0-0.1) 02/07/24 10:55 Nucleated RBC % (auto) 0 % 02/07/24 10:55 Nucleated RBCs # 0.0 /100WBC 02/07/24 10:55 Sodium 130 mmol/L (136-145) L 02/07/24 10:55 Potassium 4.8 mmol/L (3.5-5.1) 02/07/24 10:55 Chloride 95 mmol/L (98-107) L 02/07/24 10:55 Carbon Dioxide 26 mmol/L (22-29) 02/07/24 10:55 Anion Gap 13.8 (5-19) 02/07/24 10:55 BUN 15 mg/dL (8-23) 02/07/24 10:55 Creatinine 0.8 mg/dL (0.7-1.2) 02/07/24 10:55 GFR Calculation Not Reportable 02/07/24 10:55 Glucose 108 mg/dL (65-115) 02/07/24 10:55 Calculated Osmolality 271 mOsm/kg (285-295) L 02/07/24 10:55 Calcium 10.3 mg/dL (8.5-10.5) 02/07/24 10:55 Total Bilirubin 0.5 mg/dL (0.15-1.2) 02/07/24 10:55 AST 15 U/L (0-40) 02/07/24 10:55 ALT 8 U/L (0-41) 02/07/24 10:55 Alkaline Phosphatase 66 U/L (40-130) 02/07/24 10:55 Total Protein 6.8 g/dL (6.6-8.7) 02/07/24 10:55 Albumin 3.9 g/dL (3.5-5.2) 02/07/24 10:55 Globulin 2.9 g/dL (1.3-4.6) 02/07/24 10:55 Urine Color Yellow (Yellow) 02/07/24 09:50 Urine Appearance Clear (CLEAR) 02/07/24 09:50 Urine pH 7.5 (5-7) 02/07/24 09:50 Ur Specific [place] 1.010 (1.005-1.030) 02/07/24 09:50 Urine Protein Negative (Negative) 02/07/24 09:50 Urine Glucose (UA) Negative (Normal) 02/07/24 09:50 Urine Ketones Negative (Negative) 02/07/24 09:50 Urine Blood Negative (Negative) 02/07/24 09:50 Urine Nitrate Negative (Negative) 02/07/24 09:50 Urine Bilirubin Negative (Negative) 02/07/24 09:50 Urine Urobilinogen 0.2 mg/dL (Negative) 02/07/24 09:50 Ur Leukocyte Esterase Trace (Negative) A 02/07/24 09:50 Urine RBC 0-2 /hpf (0-2) 02/07/24 09:50 Urine WBC 0-5 /hpf (0-5) 02/07/24 09:50 Ur Squamous Epith Cells 0-5 /hpf (0-5) 02/07/24 09:50 Amorphous Sediment Not Reportable 02/07/24 09:50 Urine Bacteria None seen /hpf (NONE) 02/07/24 09:50 Hyaline Casts 0-4 /lpf H 02/07/24 09:50 All radiology interpretation(s) finalized by discharge Discharge Plan Discharge Patient Disposition: Home Clinical Impression: Acute urinary retention, BPH w urinary obs/LUTS Condition: Stable Prescriptions: No Action atorvastatin 40 mg tablet 40 mg PO QPM alprazolam [Xanax] 1 mg tablet 1 mg PO BID PRN (Reason: sleep) Qty: 45 4RF minoxidil 2.5 mg tablet 2.5 mg PO QAM carvedilol 3.125 mg tablet 3.125 mg PO BID lisinopril 10 mg tablet 10 mg PO QAM clotrimazole 1 % solution See Rx Instructions .ROUTE .COMPLEX Rx Instructions: Instill 5 drops in left ear twice daily for 14 days. nitroglycerin 0.4 mg tablet, sublingual See Rx Instructions .ROUTE .COMPLEX PRN (Reason: Chest Pain) Rx Instructions: DISSOLVE 1 TABLET UNDER THE TONGUE EVERY 5 MINUTES NEEDED FOR CHEST PAIN. DO NOT EXCEED A TOTAL OF 3 DOSES IN 15 MINUTES. mfppsihm-jvhbnyvun-QQ 3.5-10,000-1 mg/mL-unit/mL-% drops,suspension 4 drp otic (ear) Q8H PRN (Reason: fungal itching) sildenafil [Viagra] 50 mg tablet See Rx Instructions .ROUTE .COMPLEX PRN (Reason: Erectile Dysfunction) Rx Instructions: TAKE 1 TABLET BY MOUTH 30 minutes TO FOUR hours before sexual activity NEEDED tamsulosin [Flomax] 0.4 mg capsule 0.8 mg PO QAM ofloxacin 0.3 % drops 5 drp otic (ear) BID PRN (Reason: fungal itching) Discharge Orders: Discharge ED (Routine); Ordered 02/07/24 Ordered By: Amos Montes Referrals: Eva Nuñez MD [Primary Care Provider] - Discharge Diet: Usual diet Discharge Activity: Increase activity as tolerated Patient Instructions: Opioid Safety, Pain Management Activity Restrictions/Additional Instructions: Thank you for choosing [facility] for your healthcare needs today. It is very important that you follow up as instructed or that you return to the Emergency Department should you have concerns or if your condition changes or worsens in any way. You were seen today with urinary retention. This is likely as a result of your BPH exacerbated by the recent surgery. Gómez catheter was placed. This will keep your bladder draining. Your kidney function is normal there is no sign of a bladder infection. manager financial systems will make arrangements for you to follow-up with urology. Continue your tamsulosin 0.8 mg daily. Coding Level of Care Code ED Wheelchair Van Operator First Responder for Lavonne Enrique
[2024-02-07 09:59] VITALS: BP 132/70; PULSE 58; O2SAT 98
[2024-02-07 10:59] VITALS: BP 154/74; PULSE 56; O2SAT 98
[2024-02-07 11:03] LABS: Basophils % 0.6 %; Eosinophils # 0.2 10^3/uL (0.0-0.8); Eosinophils % 3.8 %; Hematocrit 31.4 % (37-53); Lymphocytes # 0.8 10^3/uL (0.8-4.8); Lymphocytes % 15.9 %; Mean Corpuscular HGB Conc 33.1 g/dL (30-55); Mean Corpuscular Hemoglobin 29.8 pg (27-33); Mean Platelet Volume 9.5 fL (7.4-10.4); Monocytes # 0.4 10^3/uL (0.2-0.9); Monocytes % 8.8 %; Neutrophils # 3.37 10^3/uL (1.8-7.7); Neutrophils % 70.5 %; Nucleated Red Blood Cells % 0 %; Platelet Count 294 10^3/cmm (157-399); Red Blood Count 3.49 10^6/uL (3.85-5.65); Red Cell Distribution Width 13.1 % (12.1-15.1); White Blood Count 4.78 10^3/uL (3.29-11.43)
[2024-02-07 11:07] LABS: Bilirubin Urine Negative (Negative); Blood Urine Negative (Negative); Glucose Urine UA Negative (Normal); Ketones Urine Negative (Negative); Leukocyte Esterase Urine Trace (Negative); Nitrate Urine Negative (Negative); Protein Urine Negative (Negative); Urine Appearance Clear (CLEAR); Urine Color Yellow (Yellow); Urobilinogen Urine 0.2 mg/dL (Negative); pH Urine 7.5 (5-7)
[2024-02-07 11:12] LABS: Add Urine Microscopic? YES; Bacteria Urine None Seen /hpf; Hyaline Casts Urine 0-4 /lpf; RBC Urine 0-2 /hpf (0-2); Squamous Epithelial Cell Urine 0-5 /hpf (0-5); WBC Urine 0-5 /hpf (0-5)
[2024-02-07 11:20] LABS: Add Urine Culture? No
[2024-02-07 11:23] LABS: Alanine Aminotransferase 8 U/L (0-41); Albumin Level 3.9 g/dL (3.5-5.2); Alkaline Phosphatase 66 U/L (40-130); Anion Gap 13.8 (5-19); Aspartate Amino Transferase 15 U/L (0-40); Blood Urea Nitrogen 15 mg/dL (8-23); Calcium 10.3 mg/dL (8.5-10.5); Carbon Dioxide 26 mmol/L (22-29); Chloride 95 mmol/L (98-107); Creatinine Clr Calc Pharmacy 90.2593; Globulin 2.9 g/dL (1.3-4.6); Glucose 108 mg/dL (65-115); Osmolality Calculated 271 mOsm/kg (285-295); Potassium 4.8 mmol/L (3.5-5.1); Sodium 130 mmol/L (136-145); Total Bilirubin 0.5 mg/dL (0.15-1.2); Total Protein 6.8 g/dL (6.6-8.7)
[2024-02-07 11:30] VITALS: BP 179/64; PULSE 59; O2SAT 100
[2024-02-07 12:56] VITALS: BP 183/75; PULSE 73; O2SAT 98
== END 2024-02-07 12:50 | disposition home or self-care (01) ==
PROVIDERS: Emergency Provider Family Medicine; PCP Family Medicine
DX: R33.9 Retention of urine, unspecified (principal); N40.1 Benign prostatic hyperplasia with lower urinary tract symptoms
CPT/HCPCS: 36415; 51702; 80053; 81001; 85025; 99024; 99283

== ENCOUNTER 2024-02-11 12:23 | Emergency (ER) | payer MEDICARE, SELFPAY ==
[2024-02-11 13:43] VITALS: BP 134/72; PULSE 61; RESP 18; TEMP 36.6; O2SAT 100
--- NOTE | 2024-02-11 14:45 | USR_ITS ---
PROCEDURE INFORMATION: Exam: US Duplex Right Lower Extremity Veins, Limited Exam date and time: 02/11/2024 3:17 PM Age: 78 years old Clinical indication: Edema, localized; Lower extremity, right; Patient HX: Patient had hernia repair; Additional info: Post op rle swelling TECHNIQUE: Imaging protocol: Real-time duplex ultrasound of the right extremity with 2-D bryson scale, color Doppler flow and spectral waveform analysis including responses to compression and other maneuvers (when performed) with image documentation. Limited exam was focused on the right lower extremity veins. COMPARISON: No relevant prior studies available. FINDINGS: Right deep veins: Unremarkable. The common femoral, femoral, proximal profunda femoral and popliteal veins are patent without thrombus. Normal Doppler waveforms. Normal compressibility and/or augmentation response. Superficial veins: Greater saphenous vein at the saphenofemoral junction is patent without thrombus. Soft tissues: Unremarkable. US/[place] [id number] IMPRESSION: No evidence of deep vein thrombosis.
--- NOTE | 2024-02-11 14:48 | W.ED.GENADLT ---
HPI - General Adult General: Chief complaint: General Medical Stated complaint: need a new night bag for cather Time Seen by Provider: 02/11/24 14:40 History of Present Illness: Patient is a 78-year-old male that presents to the emergency department with indwelling catheter and in need of a reservoir/bag. Patient reports that he underwent a right inguinal repair 2 to 3 weeks ago. At a postop visit he was noted as having urinary retention. He had an indwelling catheter placed due to the urinary retention. Patient does have a history of BPH and had not restarted his Flomax postoperatively. At this time he is awaiting urology follow-up which is planned for this . While discussing his primary reason for this visit patient asks a question about the right lower extremity swelling that he has had since surgery. Associated symptoms: Deny chest pain, confusion, dyspnea, headache(s), malaise, nausea, rash, palpitations or vomiting Related Data Home Medications Medication Instructions Recorded Confirmed atorvastatin 40 mg tablet 40 mg PO QPM 12/24/19 02/07/24 sildenafil 50 mg tablet (Viagra) See Rx Instructions .Route 12/21/23 02/07/24 .COMPLEX PRN Erectile Dysfunction tamsulosin 0.4 mg capsule (Flomax) 0.8 mg PO QAM 12/21/23 02/07/24 ofloxacin 0.3 % ear drops 5 drp otic (ear) BID PRN fungal 01/22/24 02/07/24 itching carvedilol 3.125 mg tablet 3.125 mg PO BID 02/07/24 02/07/24 clotrimazole 1 % topical solution See Rx Instructions .Route .COMPLEX 02/07/24 02/07/24 lisinopril 10 mg tablet 10 mg PO QAM 02/07/24 02/07/24 minoxidil 2.5 mg tablet 2.5 mg PO QAM 02/07/24 02/07/24 muicvzec-nrxgbwqzv-uprrtjnhw 3.5 4 drp otic (ear) Q8H PRN fungal 02/07/24 02/07/24 mg-10,000 unit/mL-1 % ear itching drops,susp nitroglycerin 0.4 mg sublingual See Rx Instructions .Route 02/07/24 02/07/24 tablet .COMPLEX PRN Chest Pain Previous Rx's Medication Instructions Recorded alprazolam 1 mg tablet (Xanax) 1 mg PO BID PRN sleep #45 tabs 01/24/24 Allergies Allergy/AdvReac Type Severity Reaction Status Date / Time morphine Allergy ADR-Gastrointestinal Verified 02/11/24 13:48 Upset Review of Systems General: Reports: 10 or more systems reviewed and unremarkable except in HPI and below Const: Denies: fever(s), chills, change in appetite, change in weight, fatigue or malaise Eyes: Denies: change in vision, eye discomfort, eye discharge or eye redness ENMT: Denies: throat pain, enlarged tonsils, odynophagia, hoarseness, ear or mastoid pain, ear discharge, change in hearing, tinnitus, nasal discharge, nasal congestion, post nasal drip or sinus pain Card: Denies: chest pain, palpitations, irregular heart rhythm, edema, dyspnea on exertion, orthopnea or leg pain with exertion Resp: Denies: dyspnea, productive cough, non-productive cough, wheezing, stridor or chest congestion GI: Denies: abdominal pain, nausea, vomiting, dysphagia, diarrhea, constipation, bloating, GI cramping or hematochezia : Reports: other (Postop urinary retention-Ógmez placed); Denies: flank pain, dysuria, urinary frequency, urinary urgency, urinary hesitancy, oliguria or hematuria Musc: Reports: other (Right lower extremity swelling. Denies calf pain or other pain); Denies: neck pain, back pain, extremity pain, joint pain, joint swelling, joint redness, joint warmth or muscle weakness Skin/Breast: Denies: rash, pruritus, erythema, photosensitivity or new lesions Neuro: Denies: headache(s), numbness in extremities, weakness in extremities, sensory changes, lack of coordination, difficulty walking, frequent falls, dizziness, confusion, Slurred speech present, difficulty communicating thoughts, seizure-like activity or involuntary movements Endo: Denies: polyuria, polydipsia or tired all the time Cecilio/Lymph: Denies: easy bruising or easy bleeding PFSH ED PFSH: Medical History 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 Atrial fibrillation and flutter Erectile dysfunction Hypercholesteremia BPH w urinary obs/LUTS Recurrent UTI Prostatitis UTI (urinary tract infection) Hypertension History of leukemia GERD (gastroesophageal reflux disease) ASHD (arteriosclerotic heart disease) Leukopenia Primary insomnia Surgical History History of coronary artery bypass graft x 3 History of inguinal hernia repair History of appendectomy Social History Smoking and tobacco/nicotine status: never used tobacco/nicotine Alcohol intake: current Alcohol intake frequency: holidays/special occasions only Substance/Drug Use: never Marital status: Single Current occupational status: retired Physical Exam Const: COMMON NORMALS: no acute distress, patient oriented x3 and alert GENERAL APPEARANCE: cooperative ORIENTATION/CONSCIOUSNESS: Yes awake, Yes oriented to person, Yes oriented to place and Yes oriented to time HENMT: COMMON NORMALS: normocephalic and atraumatic HEAD & SCALP: normocephalic and atraumatic FACE & SINUS: normal facial exam MOUTH: Normal oral and palatal mucosa present THROAT: posterior oropharynx normal Eye: COMMON NORMALS: Equal, round and reactive pupils present, EOMs intact bilaterally, conjunctivae normal and no scleral icterus GENERAL EYE: appearance normal, both eyes and all related structures ALIGNMENT: Yes alignment normal PERIORBITAL: periorbital findings normal CONJUNCTIVA: Yes conjunctivae normal PUPIL: Yes Equal, round and reactive pupils present Neck/C-Spine: COMMON NORMALS: full ROM GENERAL: Yes normal visual inspection Lymph: LYMPHATIC: no lymphadenopathy noted Chest: COMMONS NORMALS: normal inspection of the chest Breast/axilla inspection: Yes no chest deformity, asymmetry, normal contours, no nodules, masses, tenderness Resp: COMMON NORMALS: normal respiratory effort, No retractions and No use of accessory muscles EFFORT & INSPECTION: Yes able to speak in complete sentences and Yes symmetric chest movement Cardio: COMMON NORMALS: regular rate and Peripheral pulses 2+ throughout RATE: regular rate PERIPHERAL PULSES: Peripheral pulses 2+ throughout GI: COMMON NORMALS: Normal to inspection, nondistended, normoactive bowel sounds present, Soft to palpation, non-tender and No hepatosplenomegaly present INSPECTION: Yes normal to inspection AUSCULTATION: Yes normoactive bowel sounds PALPATION: Yes Soft to palpation and Yes No hepatosplenomegaly present RECTAL EXAM: Yes deferred Extremity: COMMON NORMALS: normal to inspection GENERAL: Yes normal exam except as noted Neuro: COMMON NORMALS: patient oriented x3 SENSORIUM/ORIENTATION: Yes alert, Yes oriented to person, Yes oriented to place and Yes oriented to time CRANIAL NERVES: Yes CN normal except as noted Psych: COMMON NORMALS: mental status grossly normal, Normal thought process present, cooperative, activity/motor behavior normal, denies homicidal ideation and denies suicidal ideation THOUGHT PROCESS: Normal thought process present Skin: COMMON NORMALS: no rashes or lesions noted, no wounds and turgor normal GENERAL SKIN EXAM: no rashes or lesions noted and turgor normal Course Vital Signs: Vital signs: Vital Signs Temperature 97.9 F 02/11/24 13:43 Pulse Rate 61 02/11/24 13:43 Respiratory Rate 18 02/11/24 13:43 Blood Pressure 134/72 02/11/24 13:43 Pulse Oximetry 100 02/11/24 13:43 Oxygen Delivery Me thod Room Air 02/11/24 13:43 MDM - General Adult Medical Decision Making Patient evaluated in the emergency department today for supplies and right lower extremity swelling. Patient is currently being treated for urinary retention following his right inguinal hernia repair. He has follow-up with urology this week. He is on Flomax Patient presented originally just for [facility] supplies. While preparing to discharge patient he brings up swelling in the right lower extremity. In observing his right lower extremity has 4+ pitting edema in the right foot and ankle. He denies calf pain Denies low-grade fever Denies any other complaints. While this could be venous congestion following an inguinal surgery on that side it could also be a DVT. I talked with patient about performing an ultrasound to rule out DVT. He is in agreement. Ultrasound right lower extremity negative for DVT Patient is going to discharge home. Follow-up with primary care as well as the surgical team. All questions answered All radiology interpretation(s) finalized by discharge Discharge Plan Discharge Patient Disposition: Home Clinical Impression: Venous congestion, Acute urinary retention Condition: Stable Prescriptions: No Action atorvastatin 40 mg tablet 40 mg PO QPM alprazolam [Xanax] 1 mg tablet 1 mg PO BID PRN (Reason: sleep) Qty: 45 4RF minoxidil 2.5 mg tablet 2.5 mg PO QAM carvedilol 3.125 mg tablet 3.125 mg PO BID lisinopril 10 mg tablet 10 mg PO QAM clotrimazole 1 % solution See Rx Instructions .ROUTE .COMPLEX Rx Instructions: Instill 5 drops in left ear twice daily for 14 days. nitroglycerin 0.4 mg tablet, sublingual See Rx Instructions .ROUTE .COMPLEX PRN (Reason: Chest Pain) Rx Instructions: DISSOLVE 1 TABLET UNDER THE TONGUE EVERY 5 MINUTES NEEDED FOR CHEST PAIN. DO NOT EXCEED A TOTAL OF 3 DOSES IN 15 MINUTES. tfzllfgb-hvjgmgnra-LS 3.5-10,000-1 mg/mL-unit/mL-% drops,suspension 4 drp otic (ear) Q8H PRN (Reason: fungal itching) sildenafil [Viagra] 50 mg tablet See Rx Instructions .ROUTE .COMPLEX PRN (Reason: Erectile Dysfunction) Rx Instructions: TAKE 1 TABLET BY MOUTH 30 minutes TO FOUR hours before sexual activity NEEDED tamsulosin [Flomax] 0.4 mg capsule 0.8 mg PO QAM ofloxacin 0.3 % drops 5 drp otic (ear) BID PRN (Reason: fungal itching) Discharge Orders: Discharge ED (Routine); Ordered 02/11/24 Ordered By: Slava Sapp Referrals: Eva Nuñez MD [Primary Care Provider] - Discharge Diet: Advance as tolerated Discharge Activity: Resume usual activity Patient Instructions: Pain Management Activity Restrictions/Additional Instructions: Please keep all your follow-up appointments. Your ultrasound of the right lower extremity was negative for a blood clot. Coding Level of Care Code ED Border [facility] Cutter for Lavnone Enrique
--- NOTE | 2024-02-13 09:36 | DCPLANNER ---
Patient is to refer back to PCP for obtaining catheter supplies- Spoke with Simon-
== END 2024-02-11 16:01 | disposition home or self-care (01) ==
PROVIDERS: Emergency Provider Nurse Practitioner; PCP Family Medicine
DX: I87.8 Other specified disorders of veins (principal); R33.9 Retention of urine, unspecified; I10 Essential (primary) hypertension
CPT/HCPCS: 93971; 99284

== ENCOUNTER → 2024-11-26 11:51 | Outpatient (BNVA) | payer MEDICARE, SELFPAY | PROVIDERS: PCP Family Medicine; Visit Provider Family Medicine | DX: N39.0 Urinary tract infection, site not specified (principal); R31.9 Hematuria, unspecified | CPT/HCPCS: 81000 ==

== ENCOUNTER → 2024-12-03 09:08 | Outpatient (BNVA) | payer MEDICARE, SELFPAY | PROVIDERS: PCP Family Medicine; Visit Provider Family Medicine | DX: N39.0 Urinary tract infection, site not specified (principal) | CPT/HCPCS: 87077; 87086; 87184 ==

== ENCOUNTER → 2024-12-11 11:15 | Outpatient (BNVA) | payer MEDICARE, SELFPAY | PROVIDERS: PCP Family Medicine; Visit Provider Specialist | DX: M19.011 Primary osteoarthritis, right shoulder (principal) | CPT/HCPCS: 73030; 99204 ==

== ENCOUNTER → 2025-01-27 10:26 | Outpatient (BNVA) | payer MEDICARE, SELFPAY | PROVIDERS: PCP Family Medicine; Visit Provider Podiatrist Foot & Ankle Surgery | DX: I73.9 Peripheral vascular disease, unspecified (principal); L60.3 Nail dystrophy | CPT/HCPCS: 11721; 99204 ==